=== PATIENT | female | born 1985 | race Caucasian/White ===

== ENCOUNTER 2019-04-20 23:24 | Emergency (ER) | payer OTHER ==
[~2019-04-20] VITALS: Ht 167.6 cm; Wt 69.4 kg
[2019-04-20 23:59] LABS: BILIRUBIN NEGATIVE (NEGATIVE); BLOOD 2+ (NEGATIVE); COLOR YELLOW (YELLOW); GLUCOSE NEGATIVE (NEGATIVE); KETONE NEGATIVE (NEGATIVE); LEUKO ESTERASE 3+ (NEGATIVE); NITRITE NEGATIVE (NEGATIVE); PH 6.5 (5.0-9.0); SPECIFIC GRAVITY <= 1.005 (1.005-1.030); UROBILINOGEN 0.2 E.U./dl (0.2-1.0)
[2019-04-21 00:06] LABS: WBC 31-40 wbc/hpf (0-5)
[2019-04-21 00:07] LABS: CLARITY SL CLOUDY (CLEAR); RBC 16-20 rbc/hpf (0-2)
[2019-04-21 00:08] LABS: BACTERIA 1+
[2019-04-21] MEDS ORDERED: PYRIDIUM200 M1 PO (01:01)
[2019-04-21] MEDS ORDERED: AMINOPHYLLIN200 MG PO (01:01)
== END 2019-04-21 01:20 | disposition home or self-care (01) ==
LOC: ED 23:24
PROVIDERS: Physician Assistant
DX: N39.0 Urinary tract infection, site not specified (principal); R10.2 Pelvic and perineal pain